=== PATIENT | female | born 1970 | race Caucasian/White ===

== ENCOUNTER 2017-02-01 21:17 | Emergency (ER) | payer MEDICAID ==
[~2017-02-01] VITALS: Ht 162.6 cm; Wt 79.4 kg
[~2017-02-01 21:17] MED LIST: CLONAZEPAM 1MG T1 MG PO; DIVALPROEX SOD500 M1 PO; ETHOSUXIMIDE250 MG PO; LEVOTHYROXIN0.175 MG PO; LISINOPRIL5 MG PO; PAROXETINE HCL30 MG PO; SIMVASTATIN40 MG PO
--- NOTE | 2017-02-01 21:40 | Emergency Room Report ---
History of Present Illness Time Seen by [id number] Presenting Problem in Triage Pt arrived:Walked Presenting Problem:DIARRHEA X 3 DAYS, POOR PO INTAKE. PRESENTS TODAY WITH WEAKNESS AND HEAD ACHE AND CHILLS. UNKNOWN IF SHE HAS HAD A TEMPERATURE. 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 N Clinical Suspician of Infection? Y Mental Status: 1 - Regular (Normal Baseline) Sepsis Risk:Low Sepsis Risk Have you (or family members/close friends) recently traveled outside the [place]? N If Yes, where/when: Have you had exposure to infectious disease within the past month? N TB? Other? Specify: Source patient, RN notes reviewed, family, old records Exam Limitations no limitations Comment pt with diarrhea with achey and no blood in stool over the last few days and no fever or travel and no known contacts Cardiac Chest Pain Chest pain indicative of cardiac No Timing/Duration this evening Severity moderate ALLERGIES Coded Allergies: Penicillins (06/21/16) erythromycin base (06/21/16) Home Medications Reported Medications Divalproex Sodium (Divalproex Sodium ER) 1,500 MG PO BID #180 Ethosuximide 500 MG PO BID #150 Lisinopril 5 MG PO DAILY #30 Clonazepam (Clonazepam 1MG) 1 MG PO BID #60 Levothyroxine Sodium (Levothyroxine 0.175MG) 0.175 MG PO DAILY #30 PAROXETINE HCL (Paroxetine HCl) 30 MG PO DAILY #30 Simvastatin (Simvastatin 40MG Tab) 40 MG PO DAILY #30 History Medical History General CAD? No Angina: No [place]: No Hypertension? Yes Hyperlipidemia? Yes CHF? No DVT? No PE? No COPD? No Asthma? No Anemia? No GERD? No Gastric ulcers? No GI Bleed? No Hernia? No Thyroid Problems? No Hypothyroidism? Yes CVA? No Seizures? Yes Diabetes? No Renal Insuffiency? No End Stage Renal Disease? No UTI? No Stones? Yes BPH? No GB Disease: Yes Nephritic Syndrome? No Asplenia? No Hepatitis? No Sickle Cell Disease? No Arthritis? No Migraines? No Cataracts? No Glaucoma? No MRSA? No HIV? No TB? No Anxiety? Yes Depression? Yes Cancer? No More? 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 denies: ear discharge, epistaxis, throat swelling. Respiratory denies cough, denies shortness of breath, denies wheezing Cardiovascular denies chest pain, denies palpitations, denies syncope Gastrointestinal see HPI, abdominal pain, diarrhea, nausea, denies vomiting Genitourinary denies: dysuria, frequency, hesitancy, hematuria. Musculoskeletal denies back pain, denies joint pain, denies joint swelling, denies neck pain Skin denies rash Psychiatric/Neurological denies headache, denies seizure Physical Exam Vital Signs Vital Signs Date Time Temp Pulse Resp B/P Pulse O2 O2 Flow FiO2 Ox Delivery Rate 02/01 2322 84 16 121/70 97 02/01 2222 98.7 81 16 137/75 98 02/01 2125 98.7 85 16 116/76 98 - WBC >12,000 or <4,000 or 10% bands? 2 or more SIRS Criteria Met? B/P:121/70 MAP:89 Creatinine >2.0? UA output<0.5ml/kg/hr for 2 hrs? Platelet count >100,000? Lactate >2.0mmol/1? INR >1.2 or PTT > than 60 sec? Evidence of Organ Dysfunction? Provider documented clinical suspician of infection? Y Sepsis Criteria Count: 1 Sepsis Risk: Low Sepsis Risk General Appearance no apparent distress Eye Exam - bilateral eye PERRL, bilateral eye EOMI Ear, Nose, Throat normal ENT inspection Neck supple Respiratory Status No: respiratory distress. Lung Sounds bilateral: lungs clear. 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 No Results/Orders Laboratory Tests 02/01/175: Sodium 138, Potassium 4.4, Chloride 105, Carbon Dioxide 26, BUN 14, Creatinine 0.6, Estimated Creat Clear 145, Estimated GFR (MDRD) 107, Glucose 95, Calcium 8.4 L, Total Bilirubin 0.1 L, AST 11 L, ALT 14, Alkaline Phosphatase 69, Total Protein 6.8, Albumin 3.2 L, Globulin 3.6 H, Albumin/Globulin Ratio 0.9 L, Amylase 50, Lipase 234, WBC 9.2, RBC 4.24, Hgb 13.7, Hct 40.4, MCV 95.3, RDW 13.1, Plt Count 232, MPV 7.5, Gran % 52.1, Gran # 4.8, Lymphocytes % 37.8, Monocytes % 7.6, Eosinophils % 2.0, Basophils % 0.5, Lymphocytes # 3.5, Monocytes # 0.7, Eosinophils # 0.2, Basophils # 0.1, PUBS MCHC 33.8, MCH 32.2 H 02/01/172149: Urine Color YELLOW, Urine Appearance CLEAR, Urine pH 8.5, Ur Specific [place] 1.010, Urine Protein NEGATIVE, Urine Ketones NEGATIVE, Urine Blood 1+ H, Urine Nitrate NEGATIVE, Urine Bilirubin NEGATIVE, Urine Urobilinogen 0.2, Ur Leukocyte Esterase 1+ H, Urine RBC OCC, Urine WBC 3-5, Ur Squamous Epith Cells 3-5, Urine Bacteria TRACE, Urine Glucose NEGATIVE Current Medication Orders Sig/Thao Start time Last Medication Dose Route Stop Time Status Admin Sodium Chloride 1,000 ML .STK-MED ONE 02/01 2218 DC IV Sodium Chloride 10 ML PRN PRN 02/01 2145 AC IV 02/02 2139 Sodium Chloride 1,000 ML .Q4H 02/01 2145 AC 02/01 IV 02/024 2216 Sodium Chloride 10 ML PRN PRN 02/01 2145 AC IV 02/03 2140 Orders Procedure Date/time Status DIET-NOTHING BY MOUTH 02/[address] ABD & PELVIS W/O CONTRAST 02/[address] SCAN REQ 02/02 2140 Active IV SALINE LOCK 02/02 2140 Active URINALYSIS/COMPLETE 02/02 2140 Complete LIPASE 02/02 2140 Complete DIARRHEA PANEL, PCR 02/02 2140 Active COMPLETE METABOLIC PANEL 02/02 2140 Complete CBC WITH AUTO DIFF 02/02 2140 Complete AMYLASE 02/02 2140 Complete XRAY/CT/US XRAY/CT/US CT abdomen, pelvis CT interpretation by discussed w/radiologist Time results known: 54 CT Results normal/NAD Departure Departure Time of Disposition 54 Disposition DC Home or Self Care(routine) Clinical Impression Primary Impression: Gastroenteritis Condition STABLE Patient Instructions Probiotics May Decrease Intensity and Duration of Diarrhea Due to Infection Additional Instructions fluids and see pcp for follow up Discharge Counseling Counseled pt/family regarding diagnosis, test results, follow up needs ED Critical Care Critical Care No at 0105
[2017-02-01 21:59] LABS: URINE BILIRUBIN - DIPSTICK NEGATIVE (NEG); URINE BLOOD 1+ (NEG)
[2017-02-01 22:55] LABS: HEMOGLOBIN 13.7 g/dL (12.2-16.2); LYMPH # 3.5 K/mm3 (0.7-4.5); LYMPH % 37.8 % (10-50.0)
[2017-02-02 01:16] VITALS: BP 131/76
--- NOTE | 2017-02-02 07:07 | RADIOLOGY REPORT PS360 ---
CT ABD PELVIS W/O CONTRAST CLINICAL INDICATION: Nausea and vomiting with abdominal pain PAIN ORDERING PHYSICIAN: Fred Walls MD PATIENT AGE: 46 years COMPARISON: 06/11/2016 TECHNIQUE: Axial images obtained with sagittal and coronal reformats. PROCEDURE: Oral Contrast: None IV Contrast: None . FINDINGS: Lower thorax: No acute finding ABDOMEN: Liver: No masses or biliary dilatation. Gallbladder: Cholecystectomy. No ductal dilatation. Pancreas: No masses or peripancreatic fluid collections. Spleen: Unremarkable. Adrenals: Unremarkable Kidneys/ureters: No masses. No renal calculi. No hydronephrosis. No perinephric fluid collections. No ureteral dilatation or obvious ureteral calculi. Stomach bowel: Nonspecific fluid-filled loops of small bowel are present in the upper abdomen with questionable mucosal thickening.. No obvious mass or thickening. There is mild amount retained colonic feces. Appendix: No evidence of appendicitis. PELVIS: Reproductive: Unremarkable Bladder: Nondistended. No obvious stones or masses. ABDOMEN & PELVIS: Peritoneum: No abnormal fluid collections. No obvious inflammatory changes. No free air. Lymph nodes: No enlarged lymph nodes apparent. Vasculature: No evidence of abdominal aortic aneurysm. No retroperitoneal hemorrhage evident. Bones: No acute fracture IMPRESSION: 1. Possible enteritis. 2. Mild amount retained colonic feces. 3. Otherwise negative
== END 2017-02-02 01:16 | disposition home or self-care (01) ==
LOC: ER 21:17
PROVIDERS: Emergency Medicine
DX: K52.9 Noninfective gastroenteritis and colitis, unspecified (principal); Z79.899 Other long term (current) drug therapy; I10 Essential (primary) hypertension; F41.8 Other specified anxiety disorders; Z72.0 Tobacco use

== ENCOUNTER 2017-02-21 14:52 | Emergency (ER) | payer MEDICAID ==
[~2017-02-21] VITALS: Ht 162.6 cm; Wt 80.3 kg
[2017-02-21 15:50] LABS: URINE BILIRUBIN - DIPSTICK NEGATIVE (NEG); URINE BLOOD 3+ (NEG)
[2017-02-21 16:04] LABS: HEMOGLOBIN 14.7 g/dL (12.2-16.2); LYMPH # 3.2 K/mm3 (0.7-4.5); LYMPH % 36.3 % (10-50.0)
[2017-02-21 16:06] LABS: URINE SQUAMOUS CELLS 20-50 #/hpf (0-5)
--- NOTE | 2017-02-21 16:40 | Emergency Room Report ---
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 N Clinical Suspician of Infection? N Mental Status: 1 - Regular (Normal Baseline) Sepsis Risk:Low Sepsis Risk Have you (or family members/close friends) recently traveled outside the [place]? N If Yes, where/when: Have you had exposure to infectious disease within the past month? N TB? Other? Specify: Patient reports diminished appetite, RLQ abdominal pain, dysuria and frequency for the past two days; states LMP was 02/09/17 but after urinating has noticed some blood when she wipes. No fever or vomiting. Still has an appendix. ALLERGIES Coded Allergies: Penicillins (02/21/17) erythromycin base (02/21/17) Home Medications Reported Medications Divalproex Sodium (Divalproex Sodium ER) 1,500 MG PO BID #180 Ethosuximide 500 MG PO BID #150 Lisinopril 5 MG PO DAILY #30 Clonazepam (Clonazepam 1MG) 1 MG PO BID #60 Levothyroxine Sodium (Levothyroxine 0.175MG) 0.175 MG PO DAILY #30 PAROXETINE HCL (Paroxetine HCl) 30 MG PO DAILY #30 Simvastatin (Simvastatin 40MG Tab) 40 MG PO DAILY #30 History Medical History General CAD? No Angina: No [place]: No Hypertension? Yes Hyperlipidemia? Yes CHF? No DVT? No PE? No COPD? No Asthma? No Anemia? No GERD? No Gastric ulcers? No GI Bleed? No Hernia? No Thyroid Problems? No Hypothyroidism? Yes CVA? No Seizures? Yes Diabetes? No Renal Insuffiency? No End Stage Renal Disease? No UTI? No Stones? Yes BPH? No GB Disease: Yes Nephritic Syndrome? No Asplenia? No Hepatitis? No Sickle Cell Disease? No Arthritis? No Migraines? No Cataracts? No Glaucoma? No MRSA? No HIV? No TB? No Anxiety? Yes Depression? Yes Cancer? No More? 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 Physical Exam Vital Signs Vital Signs Date Time Temp Pulse Resp B/P Pulse O2 O2 Flow FiO2 Ox Delivery Rate 02/21 1705 70 18 139/81 98 02/21 1541 70 18 145/81 958 02/21 1506 98.5 83 20 126/73 958 General Appearance normal appearance, WD/WN, no apparent distress Eye Exam - bilateral eye normal exam, bilateral eye PERRL, bilateral eye EOMI Neck normal inspection, non-tender, supple, full range of motion Respiratory Status Yes: trachea midline, chest symmetrical, non tender chest. No: respiratory distress, tender on palpation, use of accessory muscles, pain on inspiration, pain on expiration, productive cough, non productive cough. Lung Sounds bilateral: normal breath sounds, lungs clear. Cardiovascular normal exam, regular rate/rhythm, no peripheral edema, no gallop, no JVD, no murmur, no rub Gastrointestinal normal bowel sounds, normal exam, no guarding, no rebound, tenderness (RLQ tenderness no m/r/g) Extremities normal range of motion Pelvic normal external exam, no cerv. motion tender, no masses (scant blood; adnexal tender. R), no masses; no lesions; no CMT. No left adnexal tenderness. Nurse present during exam? Yes (Jeanine) Neurologic alert, normal exam, no motor/sensory deficits, oriented x 3 Glascow Coma Scale Glascow Coma Scale Response Value EYE response: 4 Spontaneously 4 MOTOR response: 6 OBEYS 6 VERBAL response: 5 Oriented & Converses 5 Total 15 Skin intact, normal color, warm/dry Medical Decision Making LABS/Meds/Orders Pt receiving controlled substance in ED? No Results/Orders Laboratory Tests 02/21/17 1550: WBC 8.7, RBC 4.76, Hgb 14.7, Hct 44.8, MCV 94.0, RDW 13.2, Plt Count 277, MPV 7.3 L, Gran % 52.6, Gran # 4.6, Lymphocytes % 36.3, Monocytes % 9.6 H, Eosinophils % 1.0, Basophils % 0.5, Lymphocytes # 3.2, Monocytes # 0.8, Eosinophils # 0.1, Basophils # 0.0, PUBS MCHC 32.9, MCH 30.9 02/21/17 1537: Sodium 134 L, Potassium 4.3, Chloride 101, Carbon Dioxide 25, BUN 10, Creatinine 0.7, Estimated Creat Clear 126, Estimated GFR (MDRD) 90, Glucose 94, Calcium 8.9, Total Bilirubin 0.3, AST 8 L, ALT 16, Alkaline Phosphatase 76, Total Protein 7.3, Albumin 3.6, Globulin 3.7 H, Albumin/Globulin Ratio 1.0 L 02/21/17 1520: Urine Color YELLOW, Urine Appearance CLEAR, Urine pH 7.0, Ur Specific [place] 1.010, Urine Protein NEGATIVE, Urine Ketones NEGATIVE, Urine Blood 3+ H, Urine Nitrate NEGATIVE, Urine Bilirubin NEGATIVE, Urine Urobilinogen 0.2, Ur Leukocyte Esterase TRACE H, Urine RBC 10-20, Urine WBC 3-5, Ur Squamous Epith Cells 20-50 , Urine Bacteria 3+, Urine Glucose NEGATIVE Orders Procedure Date/time Status DIET-NOTHING BY MOUTH 02/21 D Active US PELVIS-TRANSVAGINAL ONLY 02/21 1802 Active GEN NSG/PT REQ (NOT FOR MEDS!) 02/21 1638 Active WET PREP 02/21 1638 Complete CASS PREP 02/[address] ABD & PELVIS W/O CONTRAST 02/[address] ABD/PELVIS REQ 02/21 1615 Active URINALYSIS/COMPLETE 02/21 1537 Complete URINE 02/21 1537 Complete CBC WITH AUTO DIFF 02/21 1537 Complete CHEM 12 PROFILE 02/21 1537 Complete CULTURE, URINE 02/21 1520 Active XRAY/CT/US XRAY/CT/US CT abdomen, pelvis CT interpretation by reviewed by me Time results known: 1730 CT Results normal/NAD, nl appendix; no aneurysm; no stones; no fluid Ultrasound pelvis US Interpretation by reviewed by me (d/w tech) US results normal (good flow to ovaries; nl) Progress ED Progress Notes Date 02/21/[address] scan normal; waiting for pelvic exam to be set up; NAD. Departure Departure Time of Disposition 183 Disposition DC Home or Self Care(routine) Clinical Impression Primary Impression: Abdominal pain, right lower quadrant Ruled Out Impressions: Appendicitis, Ovarian torsion Condition STABLE Referrals ARMOND AGOSTO (Family) Patient Instructions DI for Pelvic Pain Additional Instructions See Dr. Agosto for follow up in one to three days. Tylenol, Advil, heating pad as needed for comfort. Discharge Counseling Counseled pt/family regarding diagnosis, test results, medications/RX, home care, follow up needs ED Critical Care Critical Care No at [phone]
[2017-02-21 18:39] VITALS: BP 132/78
--- NOTE | 2017-02-22 09:38 | RADIOLOGY REPORT PS360 ---
CT ABD PELVIS W/O CONTRAST COMPARISON: CT scan abdomen pelvis 02/01/2017 HISTORY: Abdominal pain, right flank pain, some dysuria TECHNIQUE: Multiple axial scans obtained from the hemidiaphragms the pelvic floor and were performed without IV or oral contrast. Sagittal and coronal reformats were evaluated as well. FINDINGS: The lower lung kaufman are clear. The liver spleen stomach and pancreas appear grossly normal. There has been a previous cholecystectomy. There are few scattered calcifications within the spleen. The adrenal glands are normal. The kidneys are normal in size and there are no calculi and is no obstructive uropathy. There are mildly dilated fluid-filled loops of mid and distal small bowel. There are somewhat more dilated on the recent CT scan of the abdomen pelvis from 02/01/2017 There is a moderate amount stool in the ascending and descending colon and a large amount stool in the sigmoid colon and upper rectum. The uterus is normal in size and in the midline. Urinary bladder appears normal, there is no free fluid in the pelvis.. The appendix is normal. IMPRESSION: Probable enteritis along with findings of some degree of constipation. I see no other acute abnormality, agree the [facility] report.
--- NOTE | 2017-02-22 09:41 | RADIOLOGY REPORT PS360 ---
US PELVIS-TRANSVAGINAL ONLY COMPARISON: None HISTORY: Right lower pelvic pain TECHNIQUE: Transvaginal imaging FINDINGS: The uterus is normal in size with homogeneous echogenicity. The endometrium is mildly thickened for the patient's age. Is a tiny calcification right side of the cervix. There is no free cul-de-sac fluid. Both ovaries are imaged both appearing normal. IMPRESSION Mildly thickened endometrial echo suggesting possibly some degree of endometrial hyperplasia, no other significant abnormality noted
== END 2017-02-21 18:40 | disposition home or self-care (01) ==
LOC: ER 14:52
PROVIDERS: Emergency Medicine
DX: R10.31 Right lower quadrant pain (principal); Z87.442 Personal history of urinary calculi; E03.9 Hypothyroidism, unspecified; E78.5 Hyperlipidemia, unspecified; I10 Essential (primary) hypertension; Z79.899 Other long term (current) drug therapy

== ENCOUNTER 2017-04-26 02:02 | Emergency (ER) | payer MEDICAID ==
[~2017-04-26] VITALS: Ht 162.6 cm; Wt 81.6 kg
--- OUTSIDE RECORDS SUMMARY | 2017-04-26 02:20 | External Medical Summary Rpt | CCD ---
Author Author , AVANI VARMA Address Unknown Phone [email or web address] Purpose Continuity of Care Document - through 2016 Problems Code Diagnosis DOS Provider Status K52.9 NONINFECTIV E GASTROENTER ITIS AND COLITIS, UNSPECIFIED R10.31 RIGHT LOWER QUADRANT PAIN R10.9 UNSPECIFIED ABDOMINAL PAIN
--- OUTSIDE RECORDS SUMMARY | 2017-04-26 02:20 | External Medical Summary Rpt | CCD ---
Author Author , AVANI VARMA Address Unknown Phone [email or web address] Purpose Continuity of Care Document - through 2016 Problems Code Diagnosis DOS Provider Status K52.9 NONINFECTIV E GASTROENTER ITIS AND COLITIS, UNSPECIFIED R10.31 RIGHT LOWER QUADRANT PAIN R10.9 UNSPECIFIED ABDOMINAL PAIN
--- OUTSIDE RECORDS SUMMARY | 2017-04-26 02:21 | External Medical Summary Rpt | CCD ---
Author Author , AVANI VARMA Address Unknown Phone [email or web address] Name Relationship Address Phone TRINITY, Next Of Kin Unknown Unavailable PATRIZIA Immunization Name Date Rout CVX Reac Dose Comm Prov Is Faci e tion ent ider Refu lity Give sed n Flu 09-2 Intr 0.5 Hist CVS3 No CVS3 MDCK 6-20 amus mL oric 016 016 17 cula al Quad r Info rmat P-Fr ion ee - Inj Sour ce Unsp ecif ied
--- OUTSIDE RECORDS SUMMARY | 2017-04-26 02:21 | External Medical Summary Rpt | CCD ---
Author Author [employer] Organization [employer] Address Unknown Phone Unavailable Purpose Continuity of Care Document - through 2016
--- OUTSIDE RECORDS SUMMARY | 2017-04-26 02:21 | External Medical Summary Rpt | CCD ---
Author Author , AVANI VARMA Address Unknown Phone [email or web address] Name Relationship Address Phone TRINITY, Next [...]
[2017-04-26 02:51] LABS: HEMOGLOBIN 14.2 g/dL (12.2-16.2); LYMPH # 3.7 K/mm3 (0.7-4.5); LYMPH % 23.8 % (10-50.0)
[2017-04-26 03:10] LABS: NEUTROPHILS 75 % (42-76)
--- NOTE | 2017-04-26 03:17 | Emergency Room Report ---
History of Present Illness Time Seen by [id number] Presenting Problem in Triage Pt arrived:Walked Presenting Problem:C/O BURNING SENSATION IN RIGHT BREAST. SHE SAID SHE WENT TO HER PCP EARLY THIS WEEK AND TOLD HER IT WAS A PART OF THE HEALING PROCESS, PT HAS SURGERY IN AUGUST FOR REMOVAL OF LUMP. 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 400 MG TYLENOL @ 1600 [employer]IST Provided by:PHYSICIAN Sepsis Risk Assessment: Temp: 99.0 B/P: 102/70 MAP: 91 Pulse: 87 Resp: 18 Recent fever? N Clinical Suspician of Infection? N Mental Status: 1 - Regular (Normal Baseline) Sepsis Risk:Possible Sepsis Risk Have you (or family members/close friends) recently traveled outside the [place]? N If Yes, where/when: Have you had exposure to infectious disease within the past month? N TB? Other? Specify: Source patient, RN notes reviewed, family, old records Exam Limitations no limitations Comment pt reports that she had surg on rt breast in august and was followed up by surg and about 2 weeks ago dev tender lump rt breast with no drainage - she reports no drainage but has tenderness and reddness - she reports seen by pcp earlier this week with no sig change since that visit except increased reddness Cardiac Chest Pain Chest pain indicative of cardiac No Timing/Duration this evening Severity moderate ALLERGIES Coded Allergies: Penicillins (02/21/17) erythromycin base (02/21/17) Home Medications Reported Medications Divalproex Sodium (Divalproex Sodium ER) 1,500 MG PO BID #180 Ethosuximide 500 MG PO BID #150 Lisinopril 5 MG PO DAILY #30 Clonazepam (Clonazepam 1MG) 1 MG PO BID #60 Levothyroxine Sodium (Levothyroxine 0.175MG) 0.175 MG PO DAILY #30 PAROXETINE HCL (Paroxetine HCl) 30 MG PO DAILY #30 Simvastatin (Simvastatin 40MG Tab) 40 MG PO DAILY #30 History Medical History General CAD? No Angina: No [place]: No Hypertension? Yes Hyperlipidemia? Yes CHF? No DVT? No PE? No COPD? No Asthma? No Anemia? No GERD? No Gastric ulcers? No GI Bleed? No Hernia? No Thyroid Problems? No Hypothyroidism? Yes CVA? No Seizures? Yes Diabetes? No Renal Insuffiency? No End Stage Renal Disease? No UTI? No Stones? Yes BPH? No GB Disease: Yes Nephritic Syndrome? No Asplenia? No Hepatitis? No Sickle Cell Disease? No Arthritis? No Migraines? No Cataracts? No Glaucoma? No MRSA? No HIV? No TB? No Anxiety? Yes Depression? Yes Cancer? No More? 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 Respiratory denies cough, denies shortness of breath Cardiovascular denies syncope Gastrointestinal denies abdominal pain, denies diarrhea, denies vomiting Genitourinary denies: dysuria, frequency, hesitancy, hematuria. Musculoskeletal denies back pain, denies joint pain, denies joint swelling, denies neck pain Skin see HPI, denies rash, other Psychiatric/Neurological denies headache, denies seizure Physical Exam Vital Signs Vital Signs Date Time Temp Pulse Resp B/P Pulse O2 O2 Flow FiO2 Ox Delivery Rate 04/26 314 99.0 87 18 102/70 95 04/26 0215 99.1 97 20 133/71 98 - WBC >12,000 or <4,000 or 10% bands? 2 or more SIRS Criteria Met? B/P:102/70 MAP:91 Creatinine >2.0? UA output<0.5ml/kg/hr for 2 hrs? Platelet count >100,000? Lactate >2.0mmol/1? INR >1.2 or PTT > than 60 sec? Evidence of Organ Dysfunction? Provider documented clinical suspician of infection? N Sepsis Criteria Count: 2 Sepsis Risk: Possible Sepsis Risk General Appearance no apparent distress Eye Exam - bilateral eye PERRL, bilateral eye EOMI Ear, Nose, Throat normal ENT inspection Neck supple Respiratory Status No: respiratory distress. 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 No Results/Orders Laboratory Tests 04/26/17236: Lactic Acid 0.4 04/26/17236: Sodium 135 L, Potassium 3.9, Chloride 102, Carbon Dioxide 23, BUN 15, Creatinine 0.6, Estimated Creat Clear 148, Estimated GFR (MDRD) 107, Glucose 95, Calcium 8.8, Total Bilirubin 0.2, AST 11 L, ALT 12, Alkaline Phosphatase 96, Total Protein 7.3, Albumin 3.2 L, Globulin 4.1 H, Albumin/Globulin Ratio 0.8 L, WBC 15.3 H, RBC 4.48, Hgb 14.2, Hct 42.2, MCV 94.1, RDW 13.1, Plt Count 282, MPV 7.6, Gran % 66.8, Gran # 10.2 H, Total Counted 100, Lymphocytes % 23.8, Monocytes % 7.7, Eosinophils % 1.3, Basophils % 0.3, Neutrophils 75, Band Neutrophils 6, Lymphocytes (Manual) 17, Lymphocytes # 3.7, Monocytes (Manual) 2, Monocytes # 1.2 H, Eosinophils # 0.2, Basophils # 0.1, RBC/WBC/PLT Morphology NORMAL, Platelet Estimate NORMAL, PUBS MCHC 33.6, MCH 31.6 H Current Medication Orders Sig/Thao Start time Last Medication Dose Route Stop Time Status Admin Ceftriaxone Sodium 1 GM ONCE ONE 04/26 330 DCr 04/26 Sodium Chloride 50 ML IV 04/26 Sodium Chloride 50 ML .STK-MED ONE 04/26 329 DC IV Ceftriaxone Sodium 0 .STK-MED ONE 04/26 326 DCr IV Sodium Chloride 10 ML PRN PRN 04/26 245 AC IV 04/27 243 Orders Procedure Date/time Status IV SALINE LOCK 04/26 243 Active CULTURE, BLOOD 04/26 243 Active LACTIC ACID 04/26 243 Complete CBC WITH AUTO DIFF 11/18 0243 Complete CHEM 12 PROFILE 04/26 243 Complete DIFFERENTIAL-WBC 04/26 237 Complete Departure Departure Time of Disposition 0400 Disposition DC Home or Self Care(routine) Clinical Impression Primary Impression: Cellulitis of right breast Secondary Impressions: Breast mass in female Condition STABLE Referrals ARMOND AGOSTO (Family) Patient Instructions DI for Cellulitis -- Adult Additional Instructions USE MEDS AND CALL YOUR SURG FRIDAY AM and recheck with your surg if needed this weekend Discharge Counseling Counseled pt/family regarding diagnosis, test results, medications/RX, follow up needs Prescriptions Current Visit Scripts CEPHALEXIN (Keflex 500MG Capsule) 500 MG PO Q8H #30 CAP ED Critical Care [place] No [place] 0402
[2017-04-26] MEDS ORDERED: KEFLEX 500MG.500 MG PO (04:02)
[2017-04-26 04:07] VITALS: BP 102/70
== END 2017-04-26 04:07 | disposition home or self-care (01) ==
LOC: ER 02:02
PROVIDERS: Emergency Medicine
DX: N61.0 Mastitis without abscess (principal); Z88.0 Allergy status to penicillin; Z88.1 Allergy status to other antibiotic agents; I10 Essential (primary) hypertension; E78.5 Hyperlipidemia, unspecified; F41.8 Other specified anxiety disorders; E03.9 Hypothyroidism, unspecified; F17.210 Nicotine dependence, cigarettes, uncomplicated